=== PATIENT | male | born 1985 | race Caucasian/White ===

== ENCOUNTER 2017-08-16 14:39 | Emergency (ER) | payer OTHER, BC ==
[~2017-08-16] VITALS: Ht 190.5 cm; Wt 113.5 kg
[2017-08-16 14:42] VITALS: BP 152/84; PULSE 52; RESP 14; TEMP 98.4; O2SAT 98
--- NOTE | 2017-08-16 14:56 | PD ---
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 Patient states pain is currently about 2 out of 10. Patient states he was evaluated at [facility] urgent care, and referred here. Bleeding is currently controlled with dressing applied at urgent care. Patient is unsure of his tetanus. Patient denies any medication allergies. [facility] Social History Alcohol Use: Yes Tobacco Use: No Substance Use: No Allergies-Medications (Allergen,Severity, Reaction): Coded Allergies: Penicillins (Verified Allergy, Unknown, 08/16/17) Physical Exam Narrative GENERAL: Patient appears in no obvious distress. SKIN: Warm and dry. Normal color. Normal turgor. Patient is small superficial laceration to the left distal medial finger with obvious subungual hematoma, but the nailbed is intact. HEAD: Atraumatic. Normocephalic. EYES: Pupils equal and round. No scleral icterus. No injection or drainage. ENT: No nasal bleeding or discharge. Mucous membranes pink and moist. NECK: Trachea midline. No JVD. CARDIOVASCULAR: Regular rate and rhythm. RESPIRATORY: No accessory muscle use. Clear to auscultation. Breath sounds equal bilaterally. GASTROINTESTINAL: Abdomen soft, non-tender, nondistended. Hepatic and splenic margins not palpable. MUSCULOSKELETAL: Extremities without clubbing, cyanosis, or edema. No obvious deformities. Range of motion is full. X-ray of the left fourth finger is ordered. NEUROLOGICAL: Awake and alert. No obvious cranial nerve deficits. Motor grossly within normal limits. Five out of 5 muscle strength in the arms and legs. Normal speech. PSYCHIATRIC: Appropriate mood and affect; insight and judgment normal. Data Data Last Documented VS Vital Signs Date Time Temp Pulse Resp B/P (MAP) Pulse Ox O2 Delivery O2 Flow Rate FiO2 08/16/17 14:42 98.4 52 14 152/84 (106) 98 Orders Orders Finger ([id number]) (08/16/17 14:56) Ice/Cold Pack (08/16/17 14:56) Tetanus/Diphtheria Tox Adult (Tetanus/Di (08/16/17 15:15) Clindamycin Inj (Cleocin Inj) (08/16/17 15:30) Clindamycin Inj (Cleocin Inj) (08/16/17 15:30) Ibuprofen (Motrin) (08/16/17 15:45) MDM Medical Decision Making Medical Screen Exam Complete: Yes Emergency Medical Condition: Yes Differential Diagnosis Workplace injury. Left distal tuft fracture digit. Distal fourth digit laceration. Narrative Course Patient is given a tetanus 0.5 mg IM. X-ray of the left fourth digit is ordered. X-ray shows distal tuft fracture of the left fourth digit. Electrocautery was utilized to release the subungual hematoma. Wound is cleansed and dressed without need for closure. Patient is given 600 mg clindamycin IM. Patient continued on clindamycin 300 mg 3 times a day 7 days. Patient given ibuprofen 800 mg 3 times daily with food. Dressing and aluminum splint to remain on the finger until follow-up with worker 's comp provider. Worker's Comp. forms completed with work restrictions. Patient should follow with Worker's Comp. provider in the next week. Procedures Procedure Narrative Electrocautery was utilized to make a hole in the base of the fourth left finger nail, with good relief of subungual hematoma. Wound is cleansed and dressed and cage finger splint placed. Diagnosis Primary Impression: Work related injury Additional Impressions: Crushing injury of left ring finger, initial encounter Open fracture of tuft of distal phalanx of finger Patient Instructions: General Instructions, Subungual Hematoma (ED), Tetanus ( [place]) Additional Instructions: X-ray shows distal tuft fracture of the left fourth digit. Electrocautery was utilized to release the subungual hematoma. Wound is cleansed and dressed without need for closure. Patient is given 600 mg clindamycin IM. Patient continued on clindamycin 300 mg 3 times a day 7 days. Patient given ibuprofen 800 mg 3 times daily with food. Dressing and aluminum splint to remain on the finger until follow-up with worker 's comp provider. Worker's Comp. forms completed with work restrictions. Patient should follow with Worker's Comp. provider in the next week. Med/Other Pt SpecificInfo: Prescription(s) given Disposition: 01 DISCHARGE HOME Condition: Stable Juan Manuel Robles Aug 16, 2017 14:56
[2017-08-16] MEDS ORDERED: TETANUS/DIPHTHERIA TOXOID ADULT 0.5 ML VIAL IM ONE (15:15)
--- NOTE | 2017-08-16 15:18 | RADRPT ---
EXAM DATE/TIME: 08/16/2017 15:05 [place] COMPARISON: No previous studies available for comparison. 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 SURGICAL HISTORY : None. ENCOUNTER: Initial ACUITY: 1 day PAIN SCORE: 3/10 LOCATION: Left 4th digit FINDINGS: There is a mildly displaced tuft fracture of the left hand fourth finger with slight comminution. The DIP joint is intact. The fingers otherwise unremarkable. CONCLUSION: Slightly comminuted mildly displaced tuft fracture of the fourth finger tip Roberto Black MD on August 16, 2017 at 15:15 Board Certified Radiologist. This report was verified electronically.
[2017-08-16] MEDS ORDERED: CLINDAMYCIN INJ 600 MG in SODIUM CHLORIDE 0.9% INJ 100 ML IV ONE (15:30)
[2017-08-16] MEDS ORDERED: CLINDAMYCIN PHOS 600 MG/4 ML VIAL IM ONE (15:30)
[2017-08-16] MEDS ORDERED: IBUP1TAB7 PO (15:41)
[2017-08-16] MEDS ORDERED: CLIN300C5 PO (15:41)
[2017-08-16] MEDS ORDERED: IBUPROFEN 800 MG TAB PO ONE (15:45)
== END 2017-08-16 16:27 | disposition home or self-care (01) ==
LOC: NEPD 14:39
DX: S62.635B Displaced fracture of distal phalanx of left ring finger, initial encounter for open fracture (principal); S60.142A Contusion of left ring finger with damage to nail, initial encounter; X58.XXXA Exposure to other specified factors, initial encounter; Y99.0 Civilian activity done for income or pay
CPT/HCPCS: 29130; 73140